=== PATIENT | female | born 1990 | race Hispanic/Latino ===

== ENCOUNTER → 2024-05-19 09:19 | Outpatient (REF) | payer OTHER, SELFPAY ==
[2024-05-19 09:53] LABS: % Basophils 0.6 % (0-2); % Immature Granulocytes 0.3 % (0-0.5); % Lymphocytes 34.3 % (20.5-51.1); % Monocytes 7.2 % (1.7-9.3); % Neutrophils 56.6 % (42.2-75.2); Absolute Eosinophils 0.1 10^3/uL (0-0.7); Absolute Lymphocytes 2.4 10^3/uL (1.2-3.4); Absolute Monocytes 0.5 10^3/uL (0.1-0.6); Hematocrit 31.4 % (37.0-47.0); Hemoglobin 9.5 g/dL (12.0-16.0); Mean Corp Hgb Conc. 30.3 g/dL (33.0-37.0); Mean Corpuscular Hgb 21.4 pg (27.0-31.0); Mean Corpuscular Volume 70.9 fL (81.0-99.0); Nucleated Red Blood Cells % 0 %; Platelet Count 297 10^3/uL (130-400); Red Blood Cell Count 4.43 10^6/uL (4.20-5.40); Red Cell Dist. Width 17.3 % (11.5-14.5); White Blood Cell Count 7.1 10^3/uL (4.8-10.8)
[2024-05-19 10:07] LABS: Urine Albumin Negative (Neg - Trace); Urine Bilirubin Negative (Negative); Urine Character Clear (Clear); Urine Color Yellow; Urine Glucose Negative (Negative); Urine Ketone Negative (Negative); Urine Leukocyte Negative (Negative); Urine Nitrite Negative (Negative); Urine Occult Blood Negative (Negative); Urine Specific Gravity 1.015 (<1.030); Urine Urobilinogen Negative (Neg - 1+)
[2024-05-19 10:29] LABS: ALT (SGPT) 29 U/L (0-35); AST (SGOT) 28 U/L (14-36); Albumin 4.4 g/dl (3.5-5.0); Alkaline Phosphatase 70 U/L (38-126); Blood Urea Nitrogen 11 mg/dl (7-17); Carbon Dioxide 24 mmol/L (22-30); Chloride 104 mmol/L (98-107); Glucose 96 mg/dl (70-99); HDL Cholesterol 55 mg/dl; LDL Cholesterol, Calculated 98 mg/dl; Magnesium 2.1 mg/dl (1.6-2.3); Potassium 4.7 mmol/L (3.5-5.1); Sodium 136 mmol/L (135-145); Total Bilirubin 0.7 mg/dl (0.2-1.3); Total Cholesterol 173 mg/dl (50-199); Total Protein 7.2 g/dl (6.3-8.2); Triglyceride 102 mg/dl (10-149); Very Low Density Lipoprotein 20 mg/dl (0-30); eGFR > 60.00
[2024-05-19 11:01] LABS: TSH Reflex To Free T4 1.55 uIU/ml (0.47-4.68); Vitamin D, 25-OH*** 20.9 ng/mL (30-80)
[2024-05-19 11:10] LABS: Glycohemoglobin (HgbA1c) 5.7 % (4.0-5.6)
[2024-05-19 11:34] LABS: Folate 18.7 ng/ml (2.76-20); Vitamin B12 684 pg/ml (239-931)
== END ==
LOC: REG 09:19
PROVIDERS: ATTENDING PHYSICIAN Student in an Organized Health Care Education/Training Program
DX: Z00.00 Encounter for general adult medical examination without abnormal findings (principal); M54.16 Radiculopathy, lumbar region; R31.9 Hematuria, unspecified
CPT/HCPCS: 36415; 80053; 80061; 81003; 82306; 82607; 82746; 83036; 83735; 84207; 84443; 85025

== ENCOUNTER → 2024-05-25 11:22 | Outpatient (REF) | payer OTHER, SELFPAY | LOC: CLINIC 11:22 | PROVIDERS: ATTENDING PHYSICIAN Student in an Organized Health Care Education/Training Program | DX: R31.9 Hematuria, unspecified (principal) | CPT/HCPCS: 76770 ==

== ENCOUNTER → 2024-06-21 09:03 | Outpatient (REF) | payer OTHER, SELFPAY ==
[2024-06-21 10:41] LABS: Reticulocyte Count 2.2 % (0.4-2.8)
[2024-06-21 11:23] LABS: Total Iron Binding Capacity 408 ug/dl (265-497)
[2024-06-21 14:01] LABS: Iron 40 ug/dl (37-170); Percent Saturation 9 % (20-50)
[2024-06-22 02:44] LABS: Ferritin 8.7 ng/ml (6.24-137)
[2024-06-22 19:46] LABS: Transferrin 321 mg/dL (200-360)
== END ==
LOC: CLINIC 09:03
PROVIDERS: ATTENDING PHYSICIAN Student in an Organized Health Care Education/Training Program
DX: D64.9 Anemia, unspecified (principal)
CPT/HCPCS: 36415; 82728; 83540; 83550; 84466; 85045